=== PATIENT | female | born 1995 | race Caucasian/White ===

== ENCOUNTER 2023-05-27 11:26 | Outpatient (CLI) | payer OTHER, SELFPAY ==
[2023-05-27 20:20] LABS: Glucose 1 Hour PP 50gm Dose 88 mg/dL
[2023-05-27 20:28] LABS: Basophils Percent Auto 0.2 % (0.2-1.2); Eosinophils Percent Auto 0.7 % (0-4.4); Hematocrit 38.1 % (37.0-47.0); Hemoglobin 12.5 g/dL (12.0-15.0); Immature Granulocyte Absolute 0.01 K/mm3 (0.00-0.031); Immature Granulocyte Percent A 0.2 % (0-0.5); Lymphocytes Absolute Auto 1.31 K/mm3 (0.9-3.2); Lymphocytes Percent Auto 22.1 % (18.3-44.2); Mean Corpuscular HGB Conc 32.8 g/dl (32-36); Mean Corpuscular Hemoglobin 30.6 pg (26-34); Mean Corpuscular Volume 93.4 fl (80-100); Mean Platelet Volume 10.6 fl (7.4-10.4); Monocytes Absolute Auto 0.5 K/mm3 (0.1-0.6); Monocytes Percent Auto 7.9 % (2.6-8.5); Neutrophils Absolute Auto 4.1 K/mm3 (1.3-6.7); Neutrophils Percent Auto 68.9 % (45.5-73.1); Platelet Count Result 172 k/mm3 (150-375); Red Blood Count 4.08 M/mm3 (4.2-5.4); Red Cell Distribution Width 13.4 % (11.5-14.5); White Blood Count 5.9 K/mm3 (4.5-10.0)
[2023-05-27 20:58] LABS: HIV 1/2 Ab P24 Ag Result Negative (Negative)
== END 2023-05-27 11:27 | disposition home or self-care (01) ==
LOC: ANHGOSHLAB 11:36
PROVIDERS: Visit Provider Obstetrics & Gynecology
DX: Z34.82 Encounter for supervision of other normal pregnancy, second trimester (principal); Z3A.26 26 weeks gestation of pregnancy
CPT/HCPCS: 36415; 82947; 85025; 86703; 87086; G0432

== ENCOUNTER 2023-12-31 11:45 | Outpatient (CLI) | payer OTHER, SELFPAY ==
--- NOTE | ~2023-12-31 | XR_ITS ---
XR ankle LT min 3V Ordering provider: NIHARIKA English History: . M25.572 - Pain in left ankle and joints of left foot . Comparison: None. FINDINGS: BONES: No acute fracture or dislocation. JOINT SPACES: The ankle mortise is normal. SOFT TISSUES: Normal. IMPRESSION: No acute osseous abnormality left ankle. Reviewed, dictated and finalized at location A.
== END 2023-12-31 11:46 | disposition home or self-care (01) ==
LOC: GOSHIMG 11:45
PROVIDERS: PCP Clinical Nurse Specialist; Visit Provider Clinical Nurse Specialist
DX: M25.572 Pain in left ankle and joints of left foot (principal)
CPT/HCPCS: 73610

== ENCOUNTER 2023-12-31 13:56 | Outpatient (CLI) | payer OTHER, SELFPAY ==
[2023-12-31 18:49] LABS: Basophils Percent Auto 0.5 % (0.2-1.2); Eosinophils Absolute Auto 0.1 K/mm3 (0-0.3); Hematocrit 42.7 % (37.0-47.0); Hemoglobin 13.9 g/dL (12.0-15.0); Immature Granulocyte Absolute 0.01 K/mm3 (0.00-0.031); Immature Granulocyte Percent A 0.2 % (0-0.5); Lymphocytes Absolute Auto 2.11 K/mm3 (0.9-3.2); Lymphocytes Percent Auto 37.7 % (18.3-44.2); Mean Corpuscular HGB Conc 32.6 g/dl (32-36); Mean Corpuscular Hemoglobin 28.7 pg (26-34); Mean Corpuscular Volume 88.2 fl (80-100); Mean Platelet Volume 11.4 fl (7.4-10.4); Monocytes Absolute Auto 0.4 K/mm3 (0.1-0.6); Neutrophils Percent Auto 52.6 % (45.5-73.1); Platelet Count Result 151 k/mm3 (150-375); Red Blood Count 4.84 M/mm3 (4.2-5.4); Red Cell Distribution Width 12.4 % (11.5-14.5); White Blood Count 5.6 K/mm3 (4.5-10.0)
[2023-12-31 19:22] LABS: Alanine Aminotransferase 36 U/L (6-35); Albumin Level 4.5 g/dL (3.5-5.1); Alkaline Phosphatase 84 U/L (38-126); Anion Gap 11 mmol/L (4-12); Aspartate Amino Transferase 38 U/L (14-36); Bilirubin,Total 0.4 mg/dL (0.2-1.3); Blood Urea Nitrogen 17 mg/dL (7-17); CRP < 0.5 mg/dL (<1.0); Calcium 9.3 mg/dL (8.4-10.2); Carbon Dioxide 30 mmol/L (22-30); Chloride 94 mmol/L (98-107); Estimated Glomerular Filt Rate > 60; Glucose 106 mg/dL (65-110); Potassium 4.1 mmol/L (3.4-5.0); Sodium 135 mmol/L (137-145)
[2023-12-31 19:25] LABS: Erythrocyte Sedimentation Rate 15 mm/hr (0-20)
[2023-12-31 19:35] LABS: Rheumatoid Factor 24.9 IU/ML (<12)
[2024-01-01 10:47] LABS: Thyroid Stimulating Hormone 0.711 uIU/mL (0.465-4.680)
[2024-01-01 15:03] LABS: ANA Cascade Screen NEGATIVE (NEGATIVE)
== END 2023-12-31 13:57 | disposition home or self-care (01) ==
PROVIDERS: PCP Clinical Nurse Specialist; Visit Provider Clinical Nurse Specialist
DX: M79.10 Myalgia, unspecified site (principal); Z13.228 Encounter for screening for other metabolic disorders
CPT/HCPCS: 36415; 80053; 84443; 85025; 85652; 86038; 86140; 86225; 86235; 86364; 86430

== ENCOUNTER 2024-10-19 11:22 | Outpatient (CLI) | payer OTHER, SELFPAY ==
--- NOTE | ~2024-10-19 | US_ITS ---
Pelvic ultrasound. Clinical History: First trimester , establish dates and viability Technique: Realtime transabdominal and transvaginal scanning of the pelvis was performed. Color flow Doppler and Doppler spectral analysis were performed. Findings: The uterus is anteverted, and contains an intrauterine gestation. With crown-rump length of 1.3 cm corresponds to an estimated gestational age of 7 weeks 4 days. heart rate is 151 bpm. The right ovary measures 3.5 x 3.2 x 3.1 cm. Simple right ovarian cyst measures 2.7 cm in diameter. The left is not visualized. No significant left ovarian or adnexal mass is seen. There is no evidence of free fluid in the cul de sac. Impression: Live intrauterine gestation, with estimated gestational age of 7 weeks 4 days. heart rate is 15 1 bpm. Sonographic KINSEY is 06/03/2025. Reviewed, dictated and finalized at [facility]. Impression: Live intrauterine gestation, with estimated gestational age of 7 weeks 4 days. heart rate is 151 bpm. Sonographic KINSEY is 06/03/2025.
== END 2024-10-19 11:23 | disposition home or self-care (01) ==
LOC: GOSHIMG 11:22
PROVIDERS: PCP Nurse Practitioner Family; Visit Provider Nurse Practitioner Family
DX: O36.80X0 Pregnancy with inconclusive fetal viability, not applicable or unspecified (principal); Z3A.01 Less than 8 weeks gestation of pregnancy
CPT/HCPCS: 76801

== ENCOUNTER 2024-11-24 10:41 | Outpatient (CLI) | payer OTHER, SELFPAY ==
--- OUTSIDE RECORDS SUMMARY | 2024-11-24 10:50 | XMS_ITS | Clinical Summary ---
Author Organization [facility] Address [address] [place] [address] Phone Care Team Providers Care Fire Lieutenant Marine Name Role Phone Samanta Sena NP Primary Care Provider [phone] Gabrilea Bowers MD Unavailable [phone] Allergies No known active allergies Medications PNV with [id number] 27 mg iron- 1 mg tabletIndicatio ns:Vitamin Deficiency Prevention Take 1 tablet by mouth daily 90 tablet 3 Active Additional Information Patient not taking.Reported on 09/23/2024 Active Problems Problem Noted Date Diagnosed Date Overweight (BMI 25.0-29.9) 10/13/2020 Resolved Problems Problem Noted Date Diagnosed Date Resolved Date 38 weeks gestation of 08/09/2023 09/22/2023 Breech presentation, no version 07/25/2023 09/22/2023 Maternal varicella, non-immune 02/19/2023 09/22/2023 History of HELLP syndrome, currently 01/22/20 23 09/22/2023 Overview (01/21/2023): Plan ASA 81 mg at 12 weeks. HELLP syndrome in third trimester 05/11/2021 05/21/2021 Vaginal delivery 05/10/2021 05/21/2021 Overview (05/12/2021): # ID: Afebrile. No signs/symptoms of infection. # COVID-19: Negative # Varicella non-immune: For Varivax PP, ordered, not given prior to discharge. # Heme: EBL 150mL. hemoglobin stable. No signs/symtpoms of acute blood loss anemia. # Rh status: Mom B positive # CV/Pulm: # HELLP: s/p magnesium sulfate x 24h. Blood pressures well controlled on no medication. blood pressures have ranged 108-139/63-82 over the last 24 hours with last blood pressure 123/78. Labs improving: CBC notable for plts 30 > 37 > 47>82. CMP notable for AST/ALT 510/456 > 335/371 > 161/264 > 79/178. Cr 0.6->0.9> 0.73. UPC 0.15. Will need repeat labs outpatient. asymptomatic. Patient enrolled in remote blood pressure monitoring. # GI/: Tolerating PO. Voiding spontaneously. # Pain: Well controlled with pain medications. # Post DVT prophylaxis: The patient has the following MAJOR risk factors none and the following MINOR risk factors BMI 30-39 and preeclampsia. enoxaparin 40 mg daily held during admission due to low platelets. SCDs and early ambulation used.. # MOC: Progestin-only pills # MOF: # Mood: stable, bonding with baby # COVID vaccination status: Not previously received: Counseled: and lactating people are eligible for COVID-19 vaccination, people are at increased risk for severe COVID-19, and data available to date has not demonstrated any safety concerns for or lactating people who were vaccinated or their babies. Antibodies cross the placenta and into breastmilk and may confer some protection to the infant as well. declined s/p counseling (reason: I decline to share my reason for not getting the vaccine) # Disposition: Desires discharge home today. Stable for discharge. To schedule follow up appointment with: * [facility] [id number] [place], [place] [address]Fqis to schedule an appointment in 1-2 and 6 weeks. OR * Primary OB DOCTOR - Call your primary OB doctor to schedule an appointment in 1-2 and 6 weeks. Follow up task sent [facility] pool or patient to follow up with primary OB. Prior to discharge she was consented and enrolled in [facility] remote blood pressure monitoring. She verified enrollment with receipt of text message and reply of yes. She was provided with home blood pressure monitoring kit for continued home monitoring of her blood pressures and instructed on its use. Her AVS summary has been updated with the discharge instructions on the use of the remote blood pressure monitoring system. Symptoms of preeclampsia have been reviewed. Encounter for induction of labor 05/09/2021 06/18/2021 Overview (05/09/2021): 1. Induction of labor for HELLP: Admit to L&D. Consents signed and placed in chart. Send CBC/T&S. Induction of labor with M/CC. 2. HELLP: Labs at OSH notable for AST/ALT 486/411, LDH 516, Plt 48, Cr 0.65. Admit labs pending, plan for q6hr labs. Continue Mg for seizure prophylaxis. BPs normotensive to mild range, CTM closely. 3. FWB: Continuous monitoring. tracing category I 4. ID: HIV negative. GBS positive, will start PCN. Membrane Status: intact. #VZVNI: for Varivax PP 5. Indications for UDS: none. Verbal consent obtained for UDS: Not indicated 6. MOF: Plans to breastfeed. 7. MOC: Undecided on contraception. 8. Pain management: unable to receive epidural 2/2 thrombocytopenia. Discussed alternative pain management methods. 9. Post DVT prophylaxis: The patient has the following MAJOR risk factors none and the following MINOR risk factors BMI 30-39. SCDs will be ordered for VTE prophylaxis . 10. COVID Test Status: negative at OSH Maternal varicella, non-immune 11/10/2020 06/18/2021 GBS bacteriuria 11/10/2020 06/18/2021 Overview (11/10/2020): In - penicillin in labor. Encounters Date Type Department Care Team Description 09/23/2024 9:15 AM CDT Office Visit [facility] [address] [facility] [address] [place] [phone] Gabriela Bowers MD Encounter for gynecological examination without abnormal finding (Primary Dx); Encounter for general counseling and advice on contraceptive management; Menorrhagia with regular cycle from Last 3 Months Immunizations Immunization Administration Dates Next Due Tdap 06/20/2023 Surgical History Surgery Date Site/Laterality Comments SECTION 04/14/2023 - 04/13/2024 Medical History Medical History Date Comments Chlamydia 2016 HELLP syndrome (HELLP), third trimester 2021 History of recurrent UTIs childh ood Family History Medical History Relation Name Comments Rheum arthritis Mother Thyroid disease Mother Relation Name Status Comments Brother 1 Alive Brother 2 Alive Father Alive Mother Alive Social History Tobacco Use Types Packs/Day Years Used Date Smoking Tobacco: Never Smokeless Tobacco: Never Tobacco Cessation:Counseling Given: Not Answered Comments:<1 ppd off and on x 5 years, quit 2017 [facility] Utilities Answer Date Recorded In the past 12 months has e [employer], gas, oil, or water Contract Live threatened to shut off services in your home? No 08/11/2023 Humiliation, Afraid, Rape, and Kick questionnair e Answer Date Recorded Within the last year, have y ou been afraid of your partner or ex-partner? No 08/11/2023 Within the last year, have y ou been humiliated or emotionally abused in other ways by your partner or ex-partner? No Within the last year, have y ou been kicked, hit, slapped, or otherwise physically hurt by your partner or ex-partner? No 08/11/2023 Within the last year, have y ou been raped or forced to have any kind of sexual activity by your partner or ex-partner? No 08/11/2023 Social Connection and Isolation Panel Answer Date Recorded In a typical week, how many times do you talk on the phone with family, friends, or neighbors? More than three times a week 08/09/2023 How often do you get togethe r with friends or relatives? More than three times a week 08/09/2023 How often do you attend chur ch or adventism services? 1 to 4 times per year 08/09/2023 Do you belong to any clubs o r organizations such as muslim groups, unions, fraternal or athletic groups, or school groups? Yes 08/09/2023 How often do you attend meet ings of the clubs or organizations you belong to? 1 to 4 times per year 08/09/2023 Are you , , di vorced, , never , or living with a partner? Living with partner 08/09/2023 AUDIT-C Answer Date Recorded Q1: How often do you have a drink containing alc ohol? Never 08/09/2023 Average Number of Drinks Not on file 024 Frequency of Binge Drinking Not on file 07/14 Overall Financial Resource Strain (CARDIA) Answe r Date Recorded How hard is it for you to pa y for the very basics like food, housing, medical care, and heating? Not hard at all 08/09/2023 PHQ-2 Answer Date Recorded PHQ-2 Total Score (If total score is 3 or more points, staff should administer the PHQ-9) 0 08/09/2023 [facility] - Occupational Stress Questionnaire Answer Date Recorded Do you feel stress - tense, restless, nervous, or anxious, or unable to sleep at night because your mind is troubled all the time - these days? Not at all 08/09/2023 Exercise Vital Sign Answer Date Recorde d On average, how many days pe r week do you engage in moderate to strenuous exercise (like a brisk walk)? 4 days 08/09/2023 On average, how many minutes do you engage in exercise at this level? 40 min 08/09/2023 Hunger Vital Sign Answer Date Recorded Within the past 12 months, y ou worried that your food would run out before you got the money to buy more. Never true 08/09/19 24 Within the past 12 months, t he food you bought just didn't last and you didn't have money to get more. Never true 08/09/2023 PRAPARE - Transportation Answer Date Re corded In the past 12 months, has l ack of transportation kept you from medical appointments or from getting medications? No 07/14 In the past 12 months, has l ack of transportation kept you from meetings, work, or from getting things needed for daily living? No 08/09/2023 Housing Stability Vital Sign Answer Darrion e Recorded In the last 12 months, was t here a time when you were not able to pay the mortgage or rent on time? No 08/09/2023 In the last 12 months, how many places have you lived? 1 08/09/2023 In the last 12 months, was t here a time when you did not have a steady place to sleep or slept in a senior living (including now)? No 08/09/2023 Hancock Depression Scale Answer Date Recorded Hancock Depression Scale Total 0 08/11/2023 The thought of harming myself has occurred to me . Never 08/11/2023 PHQ-9 Answer Date Recorded PHQ-9 Total Score 0 08/09/2023 Personal Safety Answer Date Recorded Have you ever been in or are you currently in a harmful physical or emotional relationship or is someone making you feel afraid or unsafe? Denies 08/09/2023 Comments No Sex and Gender Information Value Date Recorded Sex Assigned at Not on file Legal Sex Female 2:45 PM CDT Gender Identity Not on file Sexual Orientation Straight 10/06/2020 7: 32 AM CDT Occupation Industry Job Start Date Job End Date Registeration Not on file Not on file Not on file Obstetrics History Para Term AB IAB SAB Ectopic Multiple Livin g Live Births 2 2 2 0 2 2 Date Outcome GA Total Labor Labor/2nd/3rd Weight Sex Type Anes PTL Julienne A1 A5 Name Clin 2021 Term 39w 5d 9h 56m 9h 39m/0h 11m/0h 06m 2.72 kg (5 lb 15.9 oz) F Vag-S pont None N Livin g 8 9 CUMMIN S,GIRL MADELY N Mackenzie Blandon MD Complications:Other (Comment ) Delivery Location:[facility] Main C ampus ([facility] 58LD) 2023 Term 38w 1d 0h 02m 0h 02m 3.555 kg (7 lb 13.4 oz) M C-Sec tion Spinal N Livin g 9 9 Joe Bragg MD Complications:None Delivery Location:[facility] ([facility] L AND D PROCEDURE) Comments 2021 - HELLP - platelets 30 and AST/ALCIDES 510/456. Cytotec/CRB, pitocin induction at [place]. 2023 - labor, breech. [facility]. Last Filed Vital Signs Vital Sign Reading Time Taken Comments Blood Pressure 100/80 09/23/2024 9:21 AM CDT Pulse 57 08/11/2023 6:50 AM CDT Temperature 36.3 C (97.3 F) 08/11/2023 6:50 AM CDT Respiratory Rate 16 08/11/2023 6:50 AM CDT Oxygen Saturation 97% 08/10/2023 6:31 AM CDT Inhaled Oxygen Concentration - - Weight 91.2 kg (201 lb) 09/23/2024 9:21 AM CDT Height 170.2 cm (5' 7) 09/23/2024 9:21 AM CDT Body Mass Index 31.48 09/23/2024 9:21 AM CDT Plan of Treatment Health Maintenance Due Date Last Done Comments Varicella Vaccines (2 of 2 - 2-dose childhood series) 03/27/2002 01/02/2002 HPV Vaccines (2 - 3-dose series) 12/24/2013 11/26/2013 Depression Screening 08/10/2024 08/11/2023, 07/25/2023, 07/25/2023, Additional history exists Cervical Cancer Screening 09/21/2024 09/22/2023, 05/2020 Influenza Vaccine (#1) 2024 Regular Well Visit/Exam 18-64 09/23/2025 09/23/2024, 06/19/2022 DTaP/Tdap/Td Vaccine (9 - Td or Tdap) 06/19/2033 06/20/2023, 04/02/2021, 08/23/2010, Additional history exists Hepatitis B Screening Completed 07/15/1997 , 01/29/1997, 1996 Hepatitis C Screening Completed 01/21/2023, 021 Pneumococcal vaccine <65 Aged Out No longer eligible based on patient's age to complete this topic Procedures Procedure Name Priority Date/Time Associated Diagnosis Comments PAP WITH REFLEX TO HIGH RISK HPV Routine 09/22/2023 8:18 AM CDT Screening for malignant neoplasm of the cervix HEPATITIS C ANTIBODY Routine 01/21/2023 9:01 AM CDT Encounter for supervision of other normal in first trimester 9 weeks gestation of from Last 3 Months or Most Recently Relevant to Health Maintenance Results * Pap with reflex to High Risk HPV and Genotyping (Cytology Component) (09/22/2023 8:18 AM CDT) Thin prep (Pap test) 09/22/2023 8:18 AM CDT 09/22/2023 8:18 AM CDT Narrative PATHOLOGY CH - 09/25/2023 6:17 PM CDT [facility] Department of Pathology [address] [place], [place] [id number] Final Report Note to Patients: This report may contain a detailed description of human tissue sent by a health care provider to the laboratory for pathologic evaluation. The content of this report is essential for diagnosis and may provide important critical findings. This information may be unfamiliar to patients to review without a medical professional present. It is advised that the patient review this report in the presence of a health care provider who can answer questions and explain the details. Patient Name: FREDO CAMPOS Address: [address] [place] [address] [place] [address] Gender: F : 1995 (Age: 28) Service: Location: N : [id number] [facility] #: [id number] Patient Type: [facility] SPECIMEN Taken: 09/22/2023 Received: 09/22/2023 Accessioned:: 09/23/2023 Reported: 09/25/2023 Physician(s): MD Gabriela Olvera MD Diagnosis: SOURCE OF SPECIMEN Imaged Thinprep Pap Test w/ Reflex HPV - Chrome Worker Cytologic Material: STATEMENT OF ADEQUACY - Satisfactory for evaluation; endocervical/transformation zone component present GENERAL CATEGORIZATION: - Negative for intraepithelial lesion or malignancy INTERPRETATION: - smear pattern KEVIN Arias(ASCP)Lena Moore M.D. Report Electronically Reviewed and Signed Out By Lena Moore M.D. 09/25/2023 18:17:52Specimen(s) Received: A: Imaged Thinprep Pap Test w/ Reflex HPV - Chrome Worker Cytologic Material Clinical History: Menstrual History: Previous Negative Pap The Pap test is a screening test used to aid in the detection of cervical cancer and its precursors. It should not be the sole means by which malignant and premalignant lesions are diagnosed. Both false negative and false positive results may occur. It also has poor sensitivity for the detection of endometrial lesions and should not be used to evaluate suspected endometrial abnormalities. For these reasons it is most important to obtain Pap tests at regular intervals. The performance characteristics of some immunohistochemical stains, fluorescence in-situ hybridization tests and immunophenotyping by flow cytometry cited in this report (if any) were determined by the Surgical Pathology Department at [facility] as part of an ongoing quality worker program and in compliance with federally mandated regulations drawn from the Clinical Laboratory Improvement Act of 1988 (CLIA '88). Some of these tests rely on the use of analyte specific reagents and are subject to specific labeling requirements by the US Food and Drug Administration. Such diagnostic tests may only be performed in a facility that is certified by the Department of Health and Human Services as a high complexity laboratory under CLIA '88. The FDA has determined that such clearance or approval is not necessary. This test is used for clinical purposes. It should not be regarded as investigational or for research. Nevertheless, federal rules concerning the medical use of analyte specific reagents require that the following disclaimer be attached to the report: This test was developed and its performance characteristics determined by the Surgical Pathology Department [facility]. It has not been cleared or approved by the U. S. Food and Drug Administration. Gabriela Bowers MD LAB CYTOLOGY ORDERABL ES Final Result PATHOLOGY [address] [place] [address] * Hepatitis C antibody Blood (01/21/2023 9:01 AM CDT) Hep C Ab Nonreactive Nonreactive Comment: Interpretive Data Nonreactive: Antibodies to HCV not detected. Does NOT exclude the possibility of recent exposure to HCV. Equivocal: Equivocal for HCV antibodies. Supplemental molecular testing will be automatically performed to determine infection status in accordance with current CDC screening recommendations. Reactive: Positive for HCV antibodies. This may represent current or past HCV infection. Supplemental molecular testing will be automatically performed to determine current infection status in accordance with current CDC screening recommendations. Interpretive data was last revised on 2019. Blood 01/21/2023 9:01 AM CDT 01/21/2023 2:43 PM CDT Gabriela Bowers MD LAB MICROBIOL OGY - GENERAL ORDERABLES [place] [id number] [address] Department [place] [address] from Last 3 Months or Most Recently Relevant to Health Maintenance Insurance [facility] Advance Directives For more information, please contact: [phone] * Full Code (Latest Code Status on File) Date Activated Date Inactivated Comments 08/09/2023 1:11 PM 08/11/2023 8:34 PM * Full Code Date Activated Date Inactivated Comments 08/09/2023 2:26 AM 08/09/2023 1:11 PM Full CPR in case of cardiopulmonary arrest * Full Code Date Activated Date Inactivated Comments 05/10/2021 8:33 AM 05/12/2021 5:09 PM * Full Code Date Activated Date Inactivated Comments 05/09/2021 4:31 PM 05/10/2021 12:54 AM Full CPR in case of cardiopulmonary arrest Care Teams Fire Lieutenant Marine Relationship Specialty Start Date End Date Samanta Sena NP PCP - General Family Medicine 12/13/19 Gabriela Bowers MD [address] [place] [address] Behavior Support Specialist Obstetrics and Gynecology 08/11/23
--- OUTSIDE RECORDS SUMMARY | 2024-11-24 10:50 | XMS_ITS | Clinical Summary ---
Author Organization [facility] [employer] Address [address] [place] [address] Care Team Providers Care Tilting Saw Operator Name Role Phone Hallie Barrera [employer]LECOMMUN[employer] NETWORK PLANNER-[facility] Primary Care Provider [phone] Source Comments [facility] [employer],non-owned Affiliates and Associated Physician Practices is amultiple site organization consisting of ambulatory clinics and hospital sitesin [place], [place], [place]. This disclosure is being madepursuant to the Care Everywhere program and may not contain all information available regarding this patient. Last updated 18.[facility] [employer] Allergies No known active allergies Medications * Be aware that medications may not be up to date on this document. Alwaysverify current medications with the patient. Vit-Fe Fumarate-FA ( VITAMIN PO) Active Active Problems Problem Noted Date Diagnosed Date Pain and swelling of left ankle x 5 months 01/07 Overview (01/08/2024): Reducing pain w/ slight swelling and retrocalcaneal tenderness). Psoriasis? Early Psoriatic arthritis? Despite low positive RF not confirmatory of RA. Rheumatoid factor positive 01/08/2024 Overview (01/08/2024): Low positive RF at 24.9 IU/mL (normal less than 12) of uncertain clinical significance but no current findings diagnostic of RA. Social History Tobacco Use Types Packs/Day Years Used Date Smoking Tobacco: Never Smokeless Tobacco: Never Tobacco Cessation:Counseling Given: Not Answered Alcohol Use Standard Drinks/Week Comments Yes 1 (1 standard drink = 0.6 oz pur e alcohol) occasionally Comments Unknown Sex and Gender Information Value Date Recorded Sex Assigned at Not on file Legal Sex Female 9:40 AM CDT Gender Identity Not on file Sexual Orientation Not on file Last Filed Vital Signs Vital Sign Reading Time Taken Comments Blood Pressure 110/70 01/08/2024 10:47 AM CDT Pulse 84 01/08/2024 10:47 AM CDT Temperature 36.7 C (98 F) 01/08/2024 10:47 AM CDT Respiratory Rate 16 01/08/2024 10:47 AM CDT Oxygen Saturation 99% 01/08/2024 10:47 AM CDT Inhaled Oxygen Concentration - - Weight 88 kg (194 lb) 01/08/2024 10:47 AM CDT Height 170.2 cm (5' 7) 01/08/2024 10:47 AM CDT Body Mass Index 30.38 01/08/2024 10:47 AM CDT Plan of Treatment Health Maintenance Due Date Last Done Comments HIV SCREENING 09/08/2011 HEPATITIS C SCREENING 09/03/2014 DTAP/TDAP/TD VACCINES (1 - Tdap) 09/08/2015 HEPATITIS B VACCINE (1 of 3 - 19+ 3-dose series) 09/08/2015 HPV VACCINE (1 - 3-dose SCDM series) 09/08/2023 COVID-19 VACCINE (1 - 2023-2 5 season) 2023 DEPRESSION SCREENING 04/14/2024 INFLUENZA VACCINE (#1) 2024 PAP SMEAR 09/21/2026 09/22/2023 ZOSTER VACCINE (1 of 2) 2046 HIB VACCINE Aged Out No longer eligi ble based on patient's age to complete this topic MENINGOCOCCAL (Group B) VACC INE SHARED DECISION-MAKING Aged Out No longer eligibl e based on patient's age to complete this topic MENINGOCOCCAL GROUPS A/C/Y/W VACCINE Aged Out No longer eligible b ased on patient's age to complete this topic PNEUMOCOCCAL VACCINE Aged Out No long er eligible based on patient's age to complete this topic Insurance [facility] Care Teams Tilting Saw Operator Relationship Specialty Start Date End Date Hallie Barrera APRN-STUDENT OFFICER [address] [place], [place] [phone] PCP - General Certified Clinical Nurse Specialist 01/02/24
[2024-11-24 13:21] LABS: Hematocrit 42.0 % (37.0-47.0); Hemoglobin 14.0 g/dL (12.0-15.0); Mean Corpuscular HGB Conc 33.3 g/dl (32-36); Mean Corpuscular Hemoglobin 28.9 pg (26-34); Mean Corpuscular Volume 86.6 fl (80-100); Platelet Count Result 188 k/mm3 (150-375); Red Blood Count 4.85 M/mm3 (4.2-5.4); White Blood Count 4.7 K/mm3 (4.5-10.0)
[2024-11-24 13:27] LABS: Add Urine Microscopic? YES; Appearance Urine Turbid (Clear); Glucose Urine UA Negative (Negative); Leukocyte Esterase Ur Negative LEU/UL (Negative); Nitrate Urine Negative (Negative); Non Pathogenic Casts 0-2; Specific Grav Ur 1.017 (1.001-1.035)
[2024-11-24 14:05] LABS: Thyroid Stimulating Hormone 0.550 uIU/mL (0.465-4.680)
[2024-11-24 14:09] LABS: Syphilis IgG/IgM Antibody Non-Reactive (Nonreactive)
[2024-11-24 14:11] LABS: Hepatitis B Surface Antigen Negative (Negative)
[2024-11-24 14:11] LABS: HIV 1/2 Ab P24 Ag Result Negative (Negative)
[2024-11-24 15:17] LABS: Hepatitis B Surface Antigen 0.15 S/C
[2024-11-26 14:08] LABS: Varicella-Zoster Ab, IgM <0.91 index (0.00-0.90)
== END 2024-11-24 10:42 | disposition home or self-care (01) ==
PROVIDERS: Visit Provider Obstetrics & Gynecology
DX: Z34.90 Encounter for supervision of normal pregnancy, unspecified, unspecified trimester (principal); Z3A.00 Weeks of gestation of pregnancy not specified; Z20.6 Contact with and (suspected) exposure to human immunodeficiency virus [HIV]; Z72.89 Other problems related to lifestyle
CPT/HCPCS: 36415; 81001; 84443; 85027; 86593; 86703; 86762; 86787; 86803; 86850; 86900; 86901; 87086; 87340; G0432

== ENCOUNTER 2025-01-17 11:24 | Outpatient (CLI) | payer OTHER, SELFPAY ==
--- NOTE | ~2025-01-17 | US_ITS ---
EXAMINATION: US OB /maternal detail DATE: 01/17/2025 12:04 INDICATION: Encounter for supervision of normal second trimester . TECHNIQUE: Multiple obstetric sonographic images performed. FINDINGS: There is a single living fetus in vertex presentation. The placenta is posterior and not low-lying with caudal margin 5.4 cm from the internal cervical os. Normal cervical length of 3.8 cm. Amniotic fluid volume is subjectively normal. heart rate of 150 beats per minute. The following anatomy was identified as normal: Ventricles, choroid plexus, falx and cava septum pellucidum Cerebellum and cisterna magna Nuchal fold Spine Diaphragm Stomach Kidneys Bladder 3 vessel cord and cord insertion Bilateral upper and lower extremities including hands and feet Views of the heart are limited by positioning with shadowing from the spine and ribs projecting across the heart. There appears be normal left ventricular outflow tract view. The four-chamber and right ventricular outflow tract views are nondiagnostic. A coronal view of the nose and upper lip was not obtained. The following biometric data were obtained: BPD: 4.4 cm -> 19 weeks 3 days Head circumference: 17.6 cm -> 20 weeks 0 days Abdominal circumference: 14.6 cm -> 19 weeks 6 days Femur length: 3.2 cm -> 20 weeks 0 days These measurements are concordant. Head circumference to abdominal circumference ratio: 1.20 (normal range 1.08-1.26). Estimated weight: 323 g (+/-) 48 g. or 11 oz. (+/-) 2 oz. IMPRESSION: 1. Single living fetus with vertex presentation with heart rate of 150 bpm. 2. Estimated weight is 21st percentile by Hadlock criteria when 06/03/2025 is used as the KINSEY. Please correlate with clinical information or earlier ultrasounds for most accurate KINSEY. 3. Suboptimal imaging of the heart due to positioning with shadowing from the ribs and spine with likely normal left ventricular outflow tract view but nondiagnostic four-chamber heart and right ventricular outflow tract views. A coronal view of the upper lip is also not obtained. Remainder of the anatomic survey is normal. Reviewed, dictated and finalized at location A. IMPRESSION: 1. Single living fetus with vertex presentation with heart rate of 150 b pm. 2. Estimated weight is 21st percentile by Hadlock criteria when 6 is used as the KINSEY. Please correlate with clinical information or earlier ult rasounds for most accurate KINSEY. 3. Suboptimal imaging of the heart due to positioning with shadowing from the ribs and spine with likely normal left ventricular outflow tract view but nondiagnostic four-chamber heart and right ventricular outflow tract views. A c oronal view of the upper lip is also not obtained. Remainder of the anato nolvia survey is normal.
== END 2025-01-17 11:25 | disposition home or self-care (01) ==
LOC: GOSHIMG 11:25
PROVIDERS: Visit Provider Nurse Practitioner Family
DX: Z34.90 Encounter for supervision of normal pregnancy, unspecified, unspecified trimester (principal)
CPT/HCPCS: 76805

== ENCOUNTER 2025-02-01 09:53 | Outpatient (CLI) | payer OTHER, SELFPAY ==
--- NOTE | ~2025-02-01 | US_ITS ---
EXAMINATION: US OB follow up limited. DATE: 02/01/2025 10:30 INDICATION: Follow-up anatomy. NL,ROT,4 chamber heart TECHNIQUE: Real-time transabdominal obstetric ultrasound. COMPARISON: 01/17/2025 FINDINGS: There is a single living fetus in vertex presentation. The placenta is posterior without placenta previa. cardiac activity and movement is noted with a heart rate of 132 beats per minute. Anatomic survey: Upper lip identified. Four-chamber heart identified. IMPRESSION: 1. Single living fetus in vertex presentation with an estimated gestational age of 22 weeks 4 days by inititial ultrasound. 2. Anatomic survey: Upper lip identified. Four-chamber heart identified. Reviewed, dictated and finalized at location Q. IMPRESSION: 1. Single living fetus in vertex presentation with an estimated gestational ag e of 22 weeks 4 days by inititial ultrasound. 2. Anatomic survey: Upper lip identified. Four-chamber heart identified.
== END 2025-02-01 09:54 | disposition home or self-care (01) ==
LOC: GOSHIMG 09:53
PROVIDERS: PCP Nurse Practitioner Family; Visit Provider Nurse Practitioner Family
DX: Z34.90 Encounter for supervision of normal pregnancy, unspecified, unspecified trimester (principal)
CPT/HCPCS: 76816

== ENCOUNTER 2025-02-07 09:32 | Outpatient (NON) | payer OTHER, SELFPAY ==
--- OUTSIDE RECORDS SUMMARY | 2025-02-07 10:23 | XMS_ITS | Clinical Summary ---
Author Organization [facility] Address [address] [place] [address] Phone Care Team Providers Care Security Site Supervisor Name Role Phone Samanta Sena NP Primary Care Provider [phone] Gabriela Bowers MD Unavailable Allergies No known active allergies Medications PNV with vejleoy-gmbd-[id number] 27 mg iron- 1 mg tabletIndicatio ns:Vitamin [...] and may confer some protection to the as well. declined s/p counseling (reason: I decline to share my reason for not getting the vaccine) # Disposition: Desires discharge home today. Stable for discharge. To schedule follow up appointment with: * [facility] [id number] [place], [place] [address]Zsjy to schedule an appointment in 1-2 and 6 weeks. OR * Primary OB DOCTOR - Call your primary OB doctor to schedule an appointment in 1-2 and 6 weeks. Follow up task sent to [facility] scheduling pool or patient to follow up with primary OB. Prior to discharge she was consented and enrolled in [facility] remote blood pressure monitoring. She verified enrollment [...] Overview (11/10/2020): In - penicillin in labor. Immunizations Immunization Administration Dates Next Due Tdap [...] off and on x 5 years, quit 2018 [facility] Utilities Answer Date Recorded In the past 12 months has e [employer], gas, oil, or water company threatened to shut off services in your [...] often do you attend chur ch or gnosticism services? 1 to 4 times per year 08/09/2023 Do you belong to any clubs o r organizations such as restorationist groups, unions, fraternal or athletic groups, or [...] Frequency of Binge Drinking Not on file 04/2 10/2023 Overall Financial Resource Strain (CARDIA) Answe r Date Recorded How hard is it for you to pa y for the very basics like food, housing, medical care, and heating? Not hard at all 08/09/2023 PHQ-2 Answer Date Recorded PHQ-2 Total Score (If total score is 3 or more points, staff should administer the PHQ-9) 0 08/09/2023 [facility] - Occupational Stress Questionnaire Answer Date Recorded [...] to sleep or slept in a senior care (including now)? No 08/09/2023 [place] Depression Scale Answer Date Recorded [place] Depression Scale Total 0 08/11/2023 The thought [...] Mackenzie Blandon MD Complications:Other (Comment ) Delivery Location:[facility] Main C ampus ([facility] 58LD) 2023 Term 38w 1d 0h 02m 0h 02m 3.555 kg (7 lb 13.4 oz) M C-Sec tion Spinal N Livin g 9 9 Joe Bragg MD Complications:None Delivery Location:[facility] ([facility] L AND D PROCEDURE) Comments 2021 - HELLP - platelets 30 and AST/ALCIDES 510/456. Cytotec/CRB, pitocin induction at [place]. [address] - labor, breech. [facility]. Last Filed Vital [...] PATHOLOGY CH - 09/25/2023 6:17 PM CDT [facility] Department of Pathology [address] [place], [place] [id number] Final Report Note to Patients: This report [...] questions and explain the details. Patient Name: ASHWINI CAMPOS Address: [address] [place] [address] Gender: F : 1995 (Age: 28) Service: Location: [facility] #: [id number] Patient Type: [facility] SPECIMEN Taken: 09/22/2023 Received: 09/22/2023 Accessioned:: 09/23/2023 Reported: 09/25/2023 Physician(s): MD Gabriela Olvera MD Diagnosis: SOURCE OF SPECIMEN Imaged Thinprep Pap Test w/ Reflex HPV - Marine Electrician Cytologic Material: STATEMENT OF ADEQUACY - Satisfactory for evaluation; endocervical/transformation zone component present GENERAL CATEGORIZATION: - Negative for intraepithelial lesion or malignancy INTERPRETATION: - smear pattern KEVIN Arias(ASCP)Lena Moore M.D. Report Electronically Reviewed and Signed Out By Lena Moore M.D. 09/25/2023 18:17:52Specimen(s) Received: A: Imaged Thinprep Pap Test w/ Reflex HPV - Marine Electrician Cytologic Material Clinical History: Menstrual History: Previous [...] determined by the Surgical Pathology Department at [facility] as part of an ongoing quality manager program and in compliance with federally mandated [...] characteristics determined by the Surgical Pathology Department [facility]. It has not been cleared or approved by the U. S. Food and Drug Administration. Gabriela Bowers MD LAB CYTOLOGY ORDERABL ES Final Result Performing Organization Address City/[facility] Co de Phone Number [facility] [address] [place] [address] * Hepatitis C antibody Blood (01/21/2023 9:01 [...] - GENERAL ORDERABLES Edited Result - Final Performing Organization Address City/[facility]/ZIP Co de Phone Number [facility] [address] Department of [employer] [address] from Last 3 Months or Most Recently Relevant to Health Maintenance Insurance [employer] BETTER [facility] Advance Directives For more information, please contact: [phone] * Full Code (Latest Code Status on [...] in case of cardiopulmonary arrest Care Teams Security Site Supervisor Relationship Specialty Start Date End Date Samatna Sena NP PCP - General Family Medicine 12/13/19 Gabriela Bowers MD [address] [place] [address] Circuit Breaker Supervisor Obstetrics and Gynecology 08/11/23
--- OUTSIDE RECORDS SUMMARY | 2025-02-07 10:23 | XMS_ITS | Clinical Summary ---
Author Organization [facility] [employer] Address [address] [address] Care Team Providers Care Water Softener Servicer And Installer Name Role Phone Hallie Barrera HARDWARE INSTALLER-[facility] Primary Care Provider [phone] Source Comments [facility] [employer],non-owned Affiliates and Associated Physician Practices is amultiple site organization consisting of ambulatory clinics and hospital sitesin [place], [place], [place] and [place]. This disclosure is being madepursuant to the Care Everywhere program and may not contain all information available regarding this patient. Last updated 18.[facility] [employer] Allergies No known active allergies Medications * [...] VACCINE (1 - 3-dose SCDM series) 09/08/2023 DEPRESSION SCREENING 04/14/2024 COVID-19 VACCINE (1 - 2023-2 5 season) 2024 INFLUENZA VACCINE (#1) 2024 PAP SMEAR 09/21/2026 [...] patient's age to complete this topic Insurance [facility] Care Teams Water Softener Servicer And Installer Relationship Specialty Start Date End Date Hallie Barrera APRN-CAR WASH ATTENDANT AUTOMATIC [address] [place], [place] [address] PCP - General Certified Clinical Nurse Specialist 01/02/24
[2025-02-07 14:09] LABS: Total Volume 24 Hour Urine 1500 ml
[2025-02-07 14:57] LABS: Total Protein Urine 24 Hr 120 mg/24hr (28-141); Total Protein Urine Random 8 mg/dL
== END 2025-02-07 09:33 | disposition home or self-care (01) ==
LOC: ANHGOSHLAB 09:33
PROVIDERS: PCP Nurse Practitioner Family; Visit Provider Nurse Practitioner Obstetrics & Gynecology
DX: O09.892 Supervision of other high risk pregnancies, second trimester (principal); Z3A.00 Weeks of gestation of pregnancy not specified
CPT/HCPCS: 81050; 84156

== ENCOUNTER 2025-03-16 07:27 | Outpatient (CLI) | payer OTHER, SELFPAY ==
--- OUTSIDE RECORDS SUMMARY | 2025-03-16 07:31 | XMS_ITS | Clinical Summary ---
Author Organization [facility] Address [address] [place] [address] Phone Care Team Providers Care File System Installer Name Role Phone Samanta Sena NP Primary Care Provider [phone] Gabriela Bowers MD Unavailable Allergies No known active allergies Medications PNV with [id number] 27 mg iron- 1 mg tabletIndicatio ns:Vitamin [...] appointment with: * [facility] [id number] [place], [place] [address]Yygh to schedule an appointment in 1-2 and 6 weeks. OR * Primary OB DOCTOR - Call your primary OB doctor to schedule an appointment in 1-2 and 6 weeks. Follow up task sent to [facility] scheduling pool or patient to follow up with primary OB. Prior to discharge she was consented and enrolled in [facility] remote blood pressure monitoring. She verified enrollment [...] and on x 5 years, quit 2018 [facility] Utilities Answer Date Recorded In the past 12 months has e [employer], gas, oil, or water company threatened to [...] often do you attend chur ch or sikh services? 1 to 4 times per year 08/09/2023 Do you belong to any clubs o r organizations such as mu-ism groups, unions, fraternal or athletic groups, or [...] staff should administer the PHQ-9) 0 08/09/2023 [facility] - Occupational Stress Questionnaire Answer Date Recorded [...] place to sleep or slept in a half-way (including now)? No 08/09/2023 [place] Depression Scale Answer Date Recorded [place] Depression Scale Total 0 08/11/2023 The thought [...] Mackenzie Blandon MD Complications:Other (Comment ) Delivery Location:[facility] Main C ampus ([facility] 58LD) 2023 Term 38w 1d 0h 02m 0h 02m 3.555 kg (7 lb 13.4 oz) M C-Sec tion Spinal N Livin g 9 9 Joe Bragg MD Complications:None Delivery Location:[facility] ([facility] L AND D PROCEDURE) Comments 2021 - HELLP - platelets 30 and AST/ALCIDES 510/456. Cytotec/CRB, pitocin induction at [place]. [address] - labor, breech. [facility]. Last Filed [...] CH - 09/25/2023 6:17 PM CDT [facility] Department of Pathology [address] [place], [place] [id number] Final Report Note to Patients: This report [...] details. Patient Name: ASHWINI CAMPOS Address: [address] [place] [address] Gender: F : 1995 (Age: 28) Service: Location: [facility] #: [id number] Patient Type: [facility] SPECIMEN Taken: 09/22/2023 Received: 09/22/2023 Accessioned:: 09/23/2023 Reported: 09/25/2023 Physician(s): MD Gabriela Olvera MD Diagnosis: SOURCE OF SPECIMEN Imaged Thinprep Pap Test w/ Reflex HPV - Software Database Architect Cytologic Material: STATEMENT OF ADEQUACY - Satisfactory for evaluation; endocervical/transformation zone component present GENERAL CATEGORIZATION: - Negative for intraepithelial lesion or malignancy INTERPRETATION: - smear pattern KEVIN Arias(ASCP)Lena Moore M.D. Report Electronically Reviewed and Signed Out By Lena Moore M.D. 09/25/2023 18:17:52Specimen(s) Received: A: Imaged Thinprep Pap Test w/ Reflex HPV - Software Database Architect Cytologic Material Clinical History: Menstrual History: Previous [...] by the Surgical Pathology Department at [facility] as part of an ongoing automotive quality engineer program and in compliance with federally mandated [...] characteristics determined by the Surgical Pathology Department [facility]. It has not been cleared or approved by the U. S. Food and Drug Administration. Gabriela Bowers MD LAB CYTOLOGY ORDERABL ES Final Result Performing Organization Address City/[facility] Co de Phone Number [facility] [address] [place] [address] * Hepatitis C antibody Blood (01/21/2023 9:01 [...] Edited Result - Final Performing Organization Address City/[facility]/ZIP Co de Phone Number [facility] [address] [place] [address] from Last 3 Months or Most Recently Relevant to Health Maintenance Insurance AETNA BETTER [facility] Advance Directives For more information, please contact: [phone] * Full Code (Latest Code Status on [...] in case of cardiopulmonary arrest Care Teams File System Installer Relationship Specialty Start Date End Date Samanta Sean NP PCP - General Family Medicine 12/13/19 Gabriela Bowers MD [address] [place] [address] Mold Press Operator Obstetrics and Gynecology 08/11/23
--- OUTSIDE RECORDS SUMMARY | 2025-03-16 07:31 | XMS_ITS | Clinical Summary ---
Author Organization [facility] [employer] Address [address] [place] [address] Care Team Providers Care Ice Bag Assembler Name Role Phone Hallie Barrera CORRECTIONAL MEDICINE PHYSICIAN-[facility] Primary Care Provider [phone] Source Comments [facility] [employer],non-owned Affiliates and Associated Physician Practices is amultiple site organization consisting of ambulatory clinics and hospital sitesin [place], [place], [place] and [place]. This disclosure is being madepursuant to the Care Everywhere program and may not contain all information available regarding this patient. Last updated 18.[facility] [employer] Allergies No known active allergies Medications * [...] DEPRESSION SCREENING 04/14/2024 COVID-19 VACCINE (1 - 2024-2 6 season) 2024 INFLUENZA VACCINE (#1) 2024 PAP [...] patient's age to complete this topic Insurance [facility] Care Teams Ice Bag Assembler Relationship Specialty Start Date End Date Hallie Barrera APRN-MAMMAL KEEPER [address] [place], [place] [id number] PCP - General Certified Clinical Nurse Specialist 01/02/24
[2025-03-16 09:23] LABS: Hematocrit 35.4 % (37.0-47.0); Hemoglobin 11.9 g/dL (12.0-15.0); Mean Corpuscular HGB Conc 33.6 g/dl (32-36); Mean Corpuscular Hemoglobin 31.0 pg (26-34); Mean Corpuscular Volume 92.2 fl (80-100); Platelet Count Result 164 k/mm3 (150-375); Red Blood Count 3.84 M/mm3 (4.2-5.4); White Blood Count 5.8 K/mm3 (4.5-10.0)
[2025-03-16 09:47] LABS: Glucose 1 Hour PP 50gm Dose 109 mg/dL
[2025-03-16 10:21] LABS: HIV 1/2 Ab P24 Ag Result Negative (Negative)
[2025-03-16 10:41] LABS: Syphilis IgG/IgM Antibody Non-Reactive (Nonreactive)
== END 2025-03-16 07:28 | disposition home or self-care (01) ==
LOC: ANHLAB 07:29
PROVIDERS: PCP Obstetrics & Gynecology; Visit Provider Nurse Practitioner Obstetrics & Gynecology
DX: Z34.90 Encounter for supervision of normal pregnancy, unspecified, unspecified trimester (principal); Z3A.00 Weeks of gestation of pregnancy not specified
CPT/HCPCS: 36415; 82947; 85027; 86593; 86703; G0432